=== PATIENT | male | born 1960 | race Caucasian/White ===

== ENCOUNTER 2024-11-02 11:10 | Outpatient (CLI) | payer MEDICARE, SELFPAY ==
--- NOTE | 2024-11-02 11:23 | XR_ITS ---
WS: [id number] Exam: XR lumbar spine 2-3V* [id number] Date/Time of Exam: 11/02/2024 11:28 AM Reason For Exam: VERTEBROGENIC LOWER BACK PAIN Comparison 07/24/2011. There are compression deformities of T12 and L2 both demonstrating about 40% loss of vertebral height and no posterior displacement. Fracture age indeterminate. There is an old low-grade nondisplaced co mpression fracture of L3. Disc spaces are preserved. Posterior elements are intact. No scoliosis. Recommendations: MRI of the lumbar spine might be helpful for further work-up if thought to be clinic ally warranted. XR/XR lumbar spine 2-3V* [id number] IMPRESSION: 1. Compression fractures of T12 and L1 both demonstrating about 40% loss of nitesh tebral height and no posterior displacement. Fracture age indeterminate. These could be subacute fractures. 2. Old low-grade nondisplaced compression fracture of L3.
== END 2024-11-02 11:11 | disposition home or self-care (01) ==
LOC: RAD 11:19
PROVIDERS: PCP Nurse Practitioner; Visit Provider Anesthesiology Pain Medicine
DX: M54.51 Vertebrogenic low back pain (principal); S22.089A Unspecified fracture of T11-T12 vertebra, initial encounter for closed fracture; S32.019A Unspecified fracture of first lumbar vertebra, initial encounter for closed fracture; X58.XXXA Exposure to other specified factors, initial encounter; S32.039A Unspecified fracture of third lumbar vertebra, initial encounter for closed fracture
CPT/HCPCS: 72100